=== PATIENT | male | born 1970 | race African-American/Black ===

== ENCOUNTER 2018-01-09 12:41 | Emergency (ER) | payer BC, OTHER ==
--- NOTE | 2018-01-09 13:27 | RAD ---
SINGLE VIEW CHEST: Date: 01/09/18 HISTORY: Asthma exacerbation and cough. FINDINGS: Two views of the chest show an enlarged cardiomediastinal silhouette. This may be accentuated by the patient's scoliotic curvature of the spine. There is no evidence of consolidation, mass, or pleural e ffusion. Hardware is seen in the spine. IMPRESSION: No evidence of acute cardiopulmonary disease. POS: [facility]
== END 2018-01-09 13:40 | disposition home or self-care (01) ==
LOC: SCSER 12:41
DX: J45.901 Unspecified asthma with (acute) exacerbation (principal); Z79.899 Other long term (current) drug therapy
CPT/HCPCS: 71046; 93005